=== PATIENT | male | born 1955 | race Caucasian/White ===

== ENCOUNTER 2018-03-28 12:43 | Observation (INO) | payer BC, SELFPAY ==
[2018-03-28 13:26] LABS: Absolute Lymphocytes (CBC) 1.5 K/uL (0.7-4.9); Absolute Monocytes 0.7 K/uL (0.1-1.3); Absolute Neutrophil 4.1 K/uL (1.8-8.0); Basophils % 0.6 % (0-1.3); Hematocrit 43.3 % (39.6-49.0); Lymphocytes % 22.9 % (15.3-44.8); MCH 30.1 pg (27.0-35.0); MCV 87.5 fL (80-100); MPV 9.3 fL (7.6-11.3); Monocytes % 10.2 % (3.3-12.3); RBC Red Blood Cell Count 4.95 M/uL (4.33-5.43)
[2018-03-28 13:30] LABS: Protime INR 0.95
[2018-03-28 13:44] LABS: ALT/SGPT 38 U/L (12-78); AST/SGOT 28 U/L (15-37); Albumin 3.4 g/dL (3.4-5.0); Alkaline Phosphatase 103 U/L (45-117); BUN Blood Urea Nitrogen 17 mg/dL (7-18); Bicarbonate 28 mmol/L (21-32); Bilirubin Direct 0.1 mg/dL (0-0.2); Bilirubin Total 0.5 mg/dL (0.2-1.0); CKMB Creatine Kinase MB < 1.0 ng/mL (0.3-3.6); Creatine Phosphokinase 94 U/L (39-308); Glucose Level 122 mg/dL (74-106); Magnesium 2.2 mg/dL (1.8-2.4); NT PRO-BNP 241 pg/mL (<125); Potassium 4.1 mmol/L (3.5-5.1); Protein, Total 7.1 g/dL (6.4-8.2); Sodium Level 143 mmol/L (136-145); Troponin (Emerg Dept Use Only) < 0.02 ng/mL (0.0-0.045)
--- NOTE | 2018-03-28 13:45 | RAD REPORT ---
EXAM DESCRIPTION: CT - Head Brain Wo Cont - 03/28/2018 1:29 pm CLINICAL HISTORY: Dizziness COMPARISON: None. TECHNIQUE: Computed axial tomography of the head was obtained. IV contrast was not requested. All CT scans are performed using dose optimization technique as appropriate and may include automated exposure control or mA/KV adjustment according to patient size. FINDINGS: An intracranial bleed is not seen . The ventricles are normal in caliber. No extra-axial fluid collection is noted. Fluid within the sinuses/ mastoids is not seen. IMPRESSION: No acute intracranial abnormality is seen. If patient's symptoms persist MRI of the bra in would be recommended.
[2018-03-28] MEDS ORDERED: ASPIRIN 81 MG CHEWABLE TABLET ONE (14:15)
[2018-03-28] MEDS ORDERED: MORPHINE 4 MG/ML SYR ONE (14:16)
--- NOTE | 2018-03-28 14:46 | RAD REPORT ---
EXAM DESCRIPTION: [place] Single View03/28/2018 2:09 pm CLINICAL HISTORY: Chest pain COMPARISON: 2016 FINDINGS: The left base is hazy. The right lung appears clear of acute infiltrate. The heart is nor mal size IMPRESSION: The left base is hazy probably secondary to overlying soft tissue. If the patient has cl inical symptoms to suggest a left lung pneumonia then PA and lateral chest series would be recommende d
[2018-03-28] MEDS ORDERED: ONDANSETRON 4 MG/2 ML VIAL IV PRN (14:50)
--- NOTE | 2018-03-28 14:50 | EDPHYS ---
Physician Documentation [facility] Name: Sarah Prescott Age: 62 yrs Sex: Male : 1955 Arrival Date: 03/28/2018 Time: 12:47 Bed 25 Private MD: Joey Norton ED Physician Santana Vaca HPI: 03/28 13:29 This 62 yrs old Male presents to ER via Wheelchair with complaints of Chest cp Pain, Dizziness. 13:30 The patient or guardian reports chest pain that is located primarily in the substernal cp area. 13:30 Onset: this morning, at 04:00, and improved today. The pain does not radiate. cp Associated signs and symptoms: Pertinent positives: dizziness, numbness of left arm, Pertinent negatives: abdominal pain, cough, headache, lower extremity pain, lower extremity swelling, palpitations, shortness of breath, syncope, vomiting. The chest pain is described as aching. Duration: The patient or guardian reports a single episode, that is still ongoing, but improving. Modifying factors: The symptoms are alleviated by nothing. the symptoms are aggravated by nothing. Severity of pain: in the emergency department the pain has improved mildly. Historical: - Allergies: 12:54 PENICILLINS; aj - Home Meds: 12:54 None [Active]; aj - PMHx: 12:54 None; aj - PSHx: 12:54 cataract; aj - Immunization history:: Adult Immunizations up to date. - Social history:: Smoking status: Patient/guardian denies using tobacco. - Ebola Screening: : Patient negative for fever greater than or equal to 101.5 degrees Fahrenheit, and additional compatible Ebola Virus Disease symptoms Patient denies exposure to infectious person Patient denies travel to an Ebola-affected area in the 21 days before illness onset No symptoms or risks identified at this time. ROS: 13:35 Constitutional: Negative for body aches, chills, fever, poor PO intake. cp 13:35 Eyes: Negative for injury, pain, redness, and discharge. cp 13:35 Neck: Negative for pain with movement, pain at rest, stiffness. 13:35 Cardiovascular: Positive for chest pain, Negative for edema, palpitations. 13:35 Respiratory: Negative for cough, shortness of breath, wheezing. 13:35 Abdomen/GI: Negative for abdominal pain, nausea, vomiting, and diarrhea, black/tarry stool, rectal bleeding. 13:35 Back: Negative for pain at rest, pain with movement, radiated pain. 13:35 : Negative for urinary symptoms. 13:35 MS/extremity: Positive for paresthesias, of the left arm, Negative for injury or acute deformity, pain. 13:35 Skin: Negative for cellulitis, rash. 13:35 Neuro: Positive for dizziness, Negative for altered mental status, headache, syncope, near syncope, visual changes, weakness. 13:35 All other systems are negative. Exam: 13:08 ECG was reviewed by the Attending Physician. cp 13:42 Constitutional: The patient appears in no acute distress, alert, awake, cp non-diaphoretic, non-toxic, well developed, well nourished. 13:42 Head/Face: Normocephalic, atraumatic. Eyes: Pupils equal round and reactive to light, cp extra-ocular motions intact. Lids and lashes normal. Conjunctiva and sclera are non-icteric and not injected. Cornea within normal limits. Periorbital areas with no swelling, redness, or edema. ENT: Nares patent. No nasal discharge, no septal abnormalities noted. Tympanic membranes are normal and external auditory canals are clear. Oropharynx with no redness, swelling, or masses, exudates, or evidence of obstruction, uvula midline. Mucous membranes moist. Neck: Trachea midline, no thyromegaly or masses palpated, and no cervical lymphadenopathy. Supple, full range of motion without nuchal rigidity, or vertebral point tenderness. No Meningismus. Chest/axilla: Normal chest wall appearance and motion. Nontender with no deformity. No lesions are appreciated. 13:42 Cardiovascular: Rate: normal, Rhythm: regular, Pulses: Pulses are 2+ in right radial artery and left radial artery. Heart sounds: murmur, not appreciated, Edema: is not appreciated, JVD: is not appreciated. 13:42 Respiratory: the patient does not display signs of respiratory distress, Respirations: normal, no use of accessory muscles, no retractions, no splinting, no tachypnea, labored breathing, is not present, Breath sounds: are clear throughout, no decreased breath sounds, no stridor, no wheezing. 13:42 Abdomen/GI: Inspection: abdomen appears normal, Bowel sounds: active, all quadrants, Palpation: abdomen is soft and non-tender, in all quadrants. 13:42 Back: pain, is absent, ROM is normal. 13:42 Skin: cellulitis, is not appreciated, no rash present. 13:42 Neuro: Orientation: to person, place \T\ time. Mentation: lucid, able to follow commands, Cerebellar function: Romberg testing is negative, normal finger to nose testing, Motor: moves all fours, strength is normal, Sensation: no obvious gross deficits. Vital Signs: 12:54 BP 141 / 89; Pulse 68; Resp 19; Temp 97.4; Pulse Ox 97% on R/A; Weight 83.91 kg; Height aj 6 ft. 0 in. (182.88 cm); 13:01 BP 148 / 96; Pulse 73; Resp 16; Temp 98.5; Pulse Ox 99% on R/A; Pain 7/10; ch 14:27 BP 152 / 91; Pulse 76; Resp 15; Pulse Ox 99% on R/A; Pain 0/10; ch 16:01 BP 150 / 88; Pulse 72; Resp 18; Temp 98.5; Pulse Ox 99% on R/A; Pain 0/10; ch 12:54 Body Mass Index 25.09 (83.91 kg, 182.88 cm) NIH Stroke Scale Scores: 13:01 NIHSS Score: 0 ch MDM: 13:00 Differential diagnosis: abnormal EKG, acute myocardial infarction, acute pericarditis, cp chest wall pain, cholecystitis, Cholelithiasis costochondritis, pancreatitis, pneumonia, pneumothorax, pulmonary embolus, stable angina, thoracic aortic disection, unstable angina, CVA. 13:09 Patient medically screened. cp 14:48 The patient was given aspirin in the Emergency Department. cp 14:48 Data reviewed: vital signs, nurses notes, lab test result(s), EKG, radiologic studies, cp plain films. Test interpretation: by ED physician or midlevel provider: ECG, plain radiologic studies. Response to treatment: the patient's symptoms have resolved after treatment, the patient's pain is gone, and as a result, I will admit patient. Physician consultation: Khadar Gallo DO was contacted at 14:45, regarding admission, to the telemetry unit. patient's condition, and will see patient in ED, shortly. 03/28 12:59 Order name: Basic Metabolic Panel; Complete Time: 13:59 03/28 12:59 Order name: CBC with Diff; Complete Time: 13:59 03/28 12:59 Order name: Ckmb; Complete Time: 13:59 03/28 12:59 Order name: CPK; Complete Time: 13:59 03/28 12:59 Order name: LFT's; Complete Time: 13:59 03/28 12:59 Order name: Magnesium; Complete Time: 13:59 03/28 12:59 Order name: NT PRO-BNP; Complete Time: 13:59 03/28 12:59 Order name: PT-INR; Complete Time: 13:59 03/28 12:59 Order name: Ptt, Activated; Complete Time: 13:59 03/28 12:59 Order name: Troponin (emerg Dept Use Only); Complete Time: 13:59 03/28 12:59 Order name: XRAY Chest (1 view) 03/28 15:01 Order name: CKMB Creatine Kinase MB [facility] 03/28 15:01 Order name: Creatine Phosphokinase [facility] 03/28 15:01 Order name: Troponin I [facility] 03/28 12:59 Order name: EKG; Complete Time: 13:01 03/28 12:59 Order name: Cardiac monitoring; Complete Time: 15:28 03/28 12:59 Order name: EKG - Nurse/Tech; Complete Time: 15:28 03/28 12:59 Order name: IV Saline Lock; Complete Time: 15:28 03/28 12:59 Order name: Labs collected and sent; Complete Time: 15:28 03/28 12:59 Order name: O2 Per Protocol; Complete Time: 15:28 03/28 12:59 Order name: O2 Sat Monitoring; Complete Time: 15:28 03/28 12:59 Order name: CT Head Brain wo Cont; Complete Time: 13:59 03/28 15:01 Order name: CONS Physician Consult [facility] 03/28 15:01 Order name: Heart Healthy [facility] 03/28 15:01 Order name: Echo with Doppler [facility] 03/28 15:01 Order name: Stroke Protocol [facility] 03/28 15:01 Order name: Carotid Artery Bilateral EDTX EC:08 Rate is 61 beats/min. Rhythm is regular. PA interval is normal. QRS interval is normal. cp QT interval is normal. Interpreted by me. Reviewed by me. Administered Medications: 14:08 Drug: Aspirin Chewable Tablet 324 mg Route: PO; 15:28 Follow up: Response: No adverse reaction; Marked relief of symptoms ch 14:51 CANCELLED (Physician Discretion): Metoprolol 25 mg PO once cp 16:47 Not Given (Patient Refused): morphine 2 mg IVP once ch Disposition: 18:34 Co-signature as Attending Physician, Santana Vaca MD I agree with the assessment and kdr plan of care. Disposition: 03/28/18 14:50 Hospitalization ordered by Khadar Gallo for Observation. Preliminary diagnosis is Chest pain, unspecified. - Bed requested for Telemetry/MedSurg (observation). - Status is Observation. ch - Condition is Stable. - Problem is new. - Symptoms have improved. UTI on Admission? No NIH Stroke Scale - NIH Stroke Score Date: 03/28/2018 Time: 13:01 Total Score = 0 1a. Level of Consciousness (LOC) - 0(Alert) 1b. Level of Consciousness (LOC) (Year \T\ Age) - 0(Both) 1c. LOC Commands (Open \T\ Closes Eyes/Resident Doctor) - 0(Both) 2. Best Gaze (Lateral Gaze Paresis) - 0(Normal) 3. Visual Field Loss - 0(No visual loss) 4. Facial Palsy - 0(Normal) 5a. Left Arm: Motor (10-second hold) - 0(No drift) 5b. Right Arm: Motor (10-second hold) - 0(No drift) 6a. Left Leg: Motor (5-second hold - always test supine) - 0(No drift) 6b. Right Leg: Motor (5-second hold - always test supine) - 0(No drift) 7. Limb Ataxia (finger/nose \T\ heel/minor - test with eyes open) - 0(Absent) 8. Sensory Loss (pinprick arms/legs/face) - 0(Normal) 9. Best Language: Aphasia (description/naming/reading) - 0(No aphasia) 10. Dysarthria (speech clarity - read or repeat words) - 0(Normal) 11. Extinction and Inattention (visual/tactile/auditory/spatial/personal) - 0(No abnormality) Initials: Signatures: Dispatcher [employer] EDMS [place] Tinoco bd Cristina Juarez, RN Alyx Whitmore ch, RN RN aj Rittger, Kevin, MD MD kdr Page, Corey, MARION PA cp Corrections: (The following items were deleted from the chart) 14:51 14:40 Metoprolol 25 mg PO once ordered. cp cp 15:45 14:50 Hospitalization Ordered by Khadar Gallo DO for Observation. Preliminary bd diagnosis is Chest pain, unspecified. Bed requested for Telemetry/MedSurg (observation). Status is Observation. Condition is Stable. Problem is new. Symptoms have improved. UTI on Admission? No. cp 16:48 15:45 03/28/2018 14:50 Hospitalization Ordered by Khadar Gallo DO for Observation. Preliminary diagnosis is Chest pain, unspecified. Bed requested for Telemetry/MedSurg (observation). Status is Observation. Condition is Stable. Problem is new. Symptoms have improved. UTI on Admission? No. bd
--- NOTE | 2018-03-28 14:50 | ER ---
Nurse's Notes [facility] Name: Sarah Prescott Age: 62 yrs Sex: Male : 1955 Arrival Date: 03/28/2018 Time: 12:47 Bed 25 Private MD: Joey Norton Diagnosis: Chest pain, unspecified Presentation: 03/28 12:53 Presenting complaint: Patient states: Dizziness and sternal chest pressure that started aj at 0400 this AM. Denies N/V or diaphoresis. Transition of care: patient was not received from another setting of care. Onset of symptoms was March 28, 2018. Risk Assessment: Do you want to hurt yourself or someone else? Patient reports no desire to harm self or others. Initial Sepsis Screen: Does the patient meet any 2 criteria? No. Patient's initial sepsis screen is negative. Does the patient have a suspected source of infection? No. Patient's initial sepsis screen is negative. Care prior to arrival: None. 12:53 Method Of Arrival: Wheelchair aj 12:53 Acuity: BECK 3 aj Triage Assessment: 12:54 General: Appears in no apparent distress. comfortable, Behavior is calm, cooperative, aj appropriate for age. Pain: Complains of pain in chest. Neuro: Level of Consciousness is awake, alert, obeys commands, Oriented to person, place, time, situation, Appropriate for age. Cardiovascular: Reports chest pain. Cardiovascular: Capillary refill < 3 seconds in bilateral fingers Patient's skin is warm and dry. Respiratory: Airway is patent Respiratory effort is even, unlabored, Respiratory pattern is regular, symmetrical. Derm: Skin is intact, is healthy with good turgor, Skin is pink, warm \T\ dry. normal. Historical: - Allergies: 12:54 PENICILLINS; aj - Home Meds: 12:54 None [Active]; aj - PMHx: 12:54 None; aj - PSHx: 12:54 cataract; aj - Immunization history:: Adult Immunizations up to date. - Social history:: Smoking status: Patient/guardian denies using tobacco. - Ebola Screening: : Patient negative for fever greater than or equal to 101.5 degrees Fahrenheit, and additional compatible Ebola Virus Disease symptoms Patient denies exposure to infectious person Patient denies travel to an Ebola-affected area in the 21 days before illness onset No symptoms or risks identified at this time. Screenin:01 Abuse screen: Denies threats or abuse. Denies injuries from another. Nutritional screening: No deficits noted. Tuberculosis screening: No symptoms or risk factors identified. Fall Risk None identified. Assessment: 13:00 General: Appears in no apparent distress. comfortable, Behavior is calm, cooperative, ch appropriate for age. 13:01 Pain: Complains of pain in chest Pain radiates to left arm Pain began gradually. Neuro: Level of Consciousness is awake, alert, obeys commands, Oriented to person, place, time, situation, Hotbed Lever Operator are equal bilaterally. Cardiovascular: Reports chest pain, numbness in L arm. Respiratory: Airway is patent Respiratory effort is even, unlabored, Breath sounds are coarse bilaterally. 14:27 Reassessment: Patient appears in no apparent distress at this time. Patient and/or family updated on plan of care and expected duration. Pain level reassessed. Patient is alert, oriented x 3, equal unlabored respirations, skin warm/dry/pink. Patient denies pain at this time. Patient states feeling better. Patient states symptoms have improved. 15:29 Reassessment: Patient appears in no apparent distress at this time. No changes from previously documented assessment. Patient and/or family updated on plan of care and expected duration. Pain level reassessed. Patient is alert, oriented x 3, equal unlabored respirations, skin warm/dry/pink. Patient states feeling better. Patient states symptoms have improved. 15:34 Reassessment: Patient appears in no apparent distress at this time. awaiting room assignment. 16:01 Reassessment: Patient appears in no apparent distress at this time. Patient and/or family updated on plan of care and expected duration. Pain level reassessed. attempting to call report now. placed on hold. 16:24 Reassessment: Patient appears in no apparent distress at this time. attempting to call report again. pt is in imaging department now. 16:45 Reassessment: Patient appears in no apparent distress at this time. report called to second floor. MRI notified to take pt to room 228 upon completion of MRI. Vital Signs: 12:54 BP 141 / 89; Pulse 68; Resp 19; Temp 97.4; Pulse Ox 97% on R/A; Weight 83.91 kg; Height aj 6 ft. 0 in. (182.88 cm); 13:01 BP 148 / 96; Pulse 73; Resp 16; Temp 98.5; Pulse Ox 99% on R/A; Pain 7/10; ch 14:27 BP 152 / 91; Pulse 76; Resp 15; Pulse Ox 99% on R/A; Pain 0/10; ch 16:01 BP 150 / 88; Pulse 72; Resp 18; Temp 98.5; Pulse Ox 99% on R/A; Pain 0/10; ch 12:54 Body Mass Index 25.09 (83.91 kg, 182.88 cm) Vitals: 13:01 Cardiac Rhythm Assessment Regular Sinus rhythm. NIH Stroke Scale Scores: 13:01 NIHSS Score: 0 ED Course: 12:47 Patient arrived in ED. mr 12:47 Joey Norton DO is Private Physician. mr 12:54 Triage completed. aj 12:54 Arm band placed on right wrist. Patient placed in an exam room. EKG completed in triage. Results shown to MD. 12:58 Cristina Juarez, ALYSE is Primary Nurse. 12:59 Initial lab(s) drawn, by tn, EKG done, by word processor technician. Inserted saline lock: 20 gauge in jb1 left antecubital area, using aseptic technique. Blood collected. 13:01 No apparent distress. Resting quietly. ch 13:01 Patient has correct armband on for positive identification. Placed in gown. Cardiac ch monitor on. Pulse ox on. NIBP on. 13:01 No provider procedures requiring assistance completed. Patient maintains SpO2 ch saturation greater than 95% on room air. 13:09 Ronnie Conrad PA is PHCP. cp 13:09 Santana Vaca MD is Attending Physician. cp 13:17 EKG done, by word processor technician. reviewed by Ronnie SCHULTZ. dt2 13:29 CT Head Brain wo Cont In Process Unspecified. EDMS 14:05 X-ray completed. Portable x-ray completed in exam room. Patient tolerated procedure jb2 well. 14:10 XRAY Chest (1 view) In Process Unspecified. EDMS 14:27 Warm blanket given. ch 14:49 Khadar Gallo DO is Hospitalizing Provider. cp 16:02 Patient moved to MRI via wheelchair. em2 16:20 Ultrasound completed. hr 16:47 Patient admitted, IV remains in place. Administered Medications: 14:08 Drug: Aspirin Chewable Tablet 324 mg Route: PO; 15:28 Follow up: Response: No adverse reaction; Marked relief of symptoms 14:51 CANCELLED (Physician Discretion): Metoprolol 25 mg PO once 16:47 Not Given (Patient Refused): morphine 2 mg IVP once Outcome: 14:50 Decision to Hospitalize by Provider. cp 16:36 Admitted to Med/surg accompanied by tech, via wheelchair, room 228, with chart, Report called to [facility] 16:47 Condition: stable ch 16:48 Patient left the ED. NIH Stroke Scale - NIH Stroke Score Date: 03/28/2018 Time: 13:01 Total Score = 0 1a. Level of Consciousness (LOC) - 0(Alert) 1b. Level of Consciousness (LOC) (Year \T\ Age) - 0(Both) 1c. LOC Commands (Open \T\ Closes Eyes/Master Carpenter) - 0(Both) 2. Best Gaze (Lateral Gaze Paresis) - 0(Normal) 3. Visual Field Loss - 0(No visual loss) 4. Facial Palsy - 0(Normal) 5a. Left Arm: Motor (10-second hold) - 0(No drift) 5b. Right Arm: Motor (10-second hold) - 0(No drift) 6a. Left Leg: Motor (5-second hold - always test supine) - 0(No drift) 6b. Right Leg: Motor (5-second hold - always test supine) - 0(No drift) 7. Limb Ataxia (finger/nose \T\ heel/minor - test with eyes open) - 0(Absent) 8. Sensory Loss (pinprick arms/legs/face) - 0(Normal) 9. Best Language: Aphasia (description/naming/reading) - 0(No aphasia) 10. Dysarthria (speech clarity - read or repeat words) - 0(Normal) 11. Extinction and Inattention (visual/tactile/auditory/spatial/personal) - 0(No abnormality) Initials: Signatures: Dispatcher [employer] EDMS Jerry Snowden1 Cristina Juarez RN RN ch Myers, Amanda, RN RN aj Rivera, Maria mr Beto Whaley jb2 Flora Hastings Enrique em2 Ronnie Conrad PA PA cp Teague, Danielle dt2 Corrections: (The following items were deleted from the chart) 14:14 14:07 morphine 2 mg IVP in left antecubital ch ch
--- NOTE | 2018-03-28 16:05 | P.HP ---
Certification for Inpatient Patient admitted to: Observation With expected LOS: <2 Midnights Patient will require the following post-hospital care: None Practitioner: I am a practitioner with admitting privileges, knowledge of patient current condition, hospital course, and medical plan of care. Services: Services provided to patient in accordance with Admission requirements found in Title 42 Section 412.3 of the Code of Federal Regulations Patient History Date of Service: 03/28/18 Primary Care Provider: Dr. Norton Reason for admission: Chest pain History of Present Illness: 62-year-old male presented emergency room with chest pain. Patient reported chest pain that started today. Chest pain was mainly to the substernal region. It felt like a ton of bricks. He rated the pain about a 4/ 10. He did not have any nausea vomiting or palpitations with this. He did report some dizziness. He also reported some numbness to the left arm. Patient denied any abdominal pain. Patient came to the ER for further evaluation. In the ER blood pressures were elevated. CBC unremarkable. Sodium 143, potassium 4.1, GFR of 85. Troponin less than 0.02. CT of the head unremarkable. Chest x-ray unremarkable. Due to the nature is findings the patient was admitted for further evaluation. When I saw the patient ER, he is without any chest pain. He reports being seen by Cardiology about 2 years ago. He had a exercise stress test and Holter done at that time which was negative. Patient does not take any blood pressure medication. Only to medication that he takes his Nexium. There is a family history of CVAs with both his mother and brother having 1. Allergies Penicillins Allergy (Verified 03/28/18 15:08) UNK - Past Medical/Surgical History Diabetic: No -: GERD -: Cataracts surgery Psychosocial/ Personal History: Patient is for over 40 years. He has 3 children. 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 - Family History Mother -: Stroke Brother -: Stroke - Social History Smoking Status: Former smoker Alcohol use: No CD- Drugs: No Caffeine use: Yes Place of Residence: Home Review of Systems General: As per HPI Eyes: Unremarkable ENT: Unremarkable Respiratory: Unremarkable Cardiovascular: Chest Pain, Light Headedness, As per HPI Gastrointestinal: Unremarkable Genitourinary: Unremarkable Musculoskeletal: Unremarkable Integumentary: Unremarkable Neurological: As per HPI Lymphatics: Unremarkable Physical Examination - Physical Exam General: Alert, In no apparent distress, Oriented x3, Cooperative HEENT: Atraumatic, Normocephalic, PERRLA, Mucous membr. moist/pink Neck: Supple, No Thyromegaly Respiratory: Clear to auscultation bilaterally, Normal air movement Cardiovascular: Normal pulses, Regular rate/rhythm Gastrointestinal: Normal bowel sounds, Soft and benign, Non-distended, No tenderness, No masses, No rebound, No guarding Musculoskeletal: No erythema, No tenderness, No warmth Integumentary: No tenderness/swelling, No erythema, No warmth, No cyanosis Neurological: Normal speech, Normal strength at 5/5 x4 extr, Normal tone, Normal affect - Studies Laboratory Data (last 24 hrs) 03/28/18 13:10: PT 11.2, INR 0.95, APTT 29.6 03/28/18 13:10: WBC 6.6, Hgb 14.9, Hct 43.3, Plt Count 208 03/28/18 13:10: Sodium 143, Potassium 4.1, BUN 17, Creatinine 0.90, Glucose 122 H, Magnesium 2.2, Total Bilirubin 0.5, AST 28, ALT 38, Alkaline Phosphatase 103 Assessment and Plan - Plan Impression: Chest pain Paresthesia to the left upper extremity Hypertension GERD Plan: Patient will be admitted for observation and further evaluation and his chest pain. Will continue on telemetry. Will monitor cardiac enzymes. Will order echocardiogram to further assess. Cardiology consulted to further evaluate. Patient with history of exercise stress test and Holter monitor 2 years ago which was unremarkable. Patient with elevated blood pressure. Patient not taking any medications at this time. Will start lisinopril. Patient also with paresthesia to the left upper extremity associated with chest pain. Due to his family history of CVA will order stroke protocol MRI and carotid Doppler to further evaluate. Patient be started on aspirin and statin medication. Anticipate possible cardiac stress test to further evaluate. Likely discharge tomorrow if tests unremarkable. - Advance Directives Does patient have a Living Will: No Does patient have a Durable POA for Healthcare: No - Code Status/Comfort Care Code Status Assessed: Yes Time Spent Managing Pts Care (In Minutes): 55
[2018-03-28] MEDS ORDERED: ENOXAPARIN 40 MG/0.4 ML SQ SCH (17:00)
--- NOTE | 2018-03-28 17:49 | RAD REPORT ---
EXAM DESCRIPTION: USCarotid Artery Bilateral03/28/2018 4:14 pm CLINICAL HISTORY: Numbness COMPARISON: None FINDINGS: The velocity of the right internal carotid artery equals 60 cm/sec. The right ICA/CCA rati o 1.5 The velocity of the left internal carotid artery equals 98 cm/sec. The left ICA/CCA ratio 1.6 Mild plaque is present within the carotid arteries. The vertebral arteries demonstrate antegrade flow IMPRESSION: Mild plaque within the carotid arteries without evidence of a hemodynamically significan t stenosis
[2018-03-28] MEDS ORDERED: HYDRALAZINE HCL 20 MG/ML VIAL IV PRN (18:01)
[2018-03-28] MEDS: NA CHLORIDE 0.9% 1,000 ML IV SCH (18:06)
[2018-03-28] MEDS: LISINOPRIL 10 MG TAB PO SCH (18:06)
--- NOTE | 2018-03-28 18:07 | RAD REPORT ---
EXAM DESCRIPTION: MRI - MRA Neck W/Wo Cont - 03/28/2018 5:56 pm CLINICAL HISTORY: Left arm numbness COMPARISON: None. TECHNIQUE: Magnetic resonance angiogram of the neck was performed. 20 cc MultiHance administered int ravenously. .Source images were reviewed and reconstructed at 360 degrees rotation. FINDINGS: The common carotid, internal carotid and external carotid arteries do not demonstrate a si gnificant stenosis. Minimal plaque is present. An aneurysm is not seen. The right vertebral artery is more dominant than the left without visualization of an abnormality. Do lichoectasia of the vertebrobasilar artery is noted IMPRESSION: Dolichoectasia of the vertebrobasilar artery is noted Minimal plaque within the carotid arteries
--- NOTE | 2018-03-28 18:10 | RAD REPORT ---
EXAM DESCRIPTION: MRI - MRA Head Wo Cont - 03/28/2018 5:26 pm COMPARISON: None. TECHNIQUE: Magnetic resonance angiogram of the head was performed. Source images were reviewed and reconstructed at 360 degrees rotation. FINDINGS: The visualized anterior cerebral, middle cerebral, posterior cerebral, basilar and distal internal carotid arteries do not demonstrate a significant stenosis. The a 1 segment of the right ant erior cerebral artery is hypoplastic. An aneurysm is not seen Dolichoectasia of the vertebrobasilar artery is noted IMPRESSION: Dolichoectasia of the vertebrobasilar artery is noted Otherwise, unremarkable MRA head
--- NOTE | 2018-03-28 18:16 | RAD REPORT ---
EXAM DESCRIPTION: MRI - Brain W/Wo Cont - 03/28/2018 5:56 pm CLINICAL HISTORY: Left arm numbness COMPARISON: None TECHNIQUE: Axial, sagittal, and coronal magnetic images of the brain were obtained. 20 cc Magnevist administered intravenously. FINDINGS: A 7 millimeter area of abnormal signal within the left frontal lobe may represent an area of ischemia or small old infarct. Mild periventricular signal likely represents mild ischemic changes secondary to mild small vessel disease. . Diffusion-weighted/ADC mapping does not reveal evidence of acute infarction. The ventricles are normal caliber. No abnormal enhancement within the brain is seen. An extra-axial fluid collection is not noted The sinuses and mastoids are clear. IMPRESSION: No acute abnormality is seen
[2018-03-28 20:21] LABS: Urine Appearance CLOUDY; Urine Bilirubin NEGATIVE (NEG); Urine Blood NEGATIVE (NEG); Urine Color YELLOW; Urine Glucose NEGATIVE (NEG); Urine Protein NEGATIVE (NEG); Urine Specific Gravity 1.025 (1.005-1.030); Urine pH 6.5 (5.0-7.0)
[2018-03-28] MEDS ORDERED: ATORVASTATIN 40 MG TAB PO SCH (21:00)
[2018-03-28 21:28] LABS: Urine Microscopic Reflex ORDER UMIC
[2018-03-28] MEDS: FAMOTIDINE 20 MG TAB PO SCH (21:53)
[2018-03-28 22:20] LABS: Urine Amorphous Sediment 3+ /HPF (NONE SEEN); Urine Bacteria <20 /HPF (NONE SEEN); Urine Culture Reflex Order NOT NEEDED; Urine RBC <5 /HPF (NONE SEEN)
[2018-03-28 22:38] LABS: CKMB Creatine Kinase MB < 1.0 ng/mL (0.3-3.6); Creatine Phosphokinase 69 U/L (39-308); Troponin I < 0.02 ng/mL (0.0-0.045)
[2018-03-29] MEDS ORDERED: HYDRALAZINE HCL 20 MG/ML VIAL IV PRN (03:48)
[2018-03-29] MEDS: NA CHLORIDE 0.9% 1,000 ML IV SCH (03:53)
[2018-03-29] MEDS: ACETAMINOPHEN 500 MG TAB PO PRN ×2 (03:57→09:31)
[2018-03-29 05:38] LABS: Absolute Lymphocytes (CBC) 1.5 K/uL (0.7-4.9); Absolute Monocytes 0.6 K/uL (0.1-1.3); Absolute Neutrophil 3.9 K/uL (1.8-8.0); Basophils % 0.6 % (0-1.3); Eosinophils % 4.5 % (0-4.4); Hematocrit 40.7 % (39.6-49.0); MCH 30.2 pg (27.0-35.0); MCV 86.7 fL (80-100); MPV 9.1 fL (7.6-11.3); Monocytes % 9.6 % (3.3-12.3)
[2018-03-29 06:38] LABS: CKMB Creatine Kinase MB < 1.0 ng/mL (0.3-3.6); Creatine Phosphokinase 60 U/L (39-308); Troponin I < 0.02 ng/mL (0.0-0.045)
[2018-03-29 06:43] LABS: Magnesium 2.1 mg/dL (1.8-2.4); Potassium 4.1 mmol/L (3.5-5.1); Thyroid Stimulating Hormone 2.78 uIU/mL (0.360-3.740)
--- NOTE | 2018-03-29 07:37 | EKG ---
Test Date: 2018-03-28 Test Time: 13:00:02 Collet Gluer: LAZARUS MEASUREMENT RESULTS: Intervals: Rate: 61 AR: 162 QRSD: 90 QT: 448 QTc: 450 Roggen: P: 38 AR: 162 QRS: -22 T: 23 INTERPRETIVE STATEMENTS: Normal sinus rhythm Possible Anterior infarct, age undetermined Abnormal ECG Compared to ECG 09/21/1994 21:39:00 No significant changes Electronically Signed On 03-29-18 07:34:24 CDT by Constantin Isaac
--- NOTE | 2018-03-29 08:04 | P.DS ---
Admission Date: 03/28/18 Discharge Date: 03/29/18 Primary Care Provider: Dr. Norton/Dr. Banegas Disposition: ROUTINE DISCHARGE Discharge Condition: GOOD Reason for Admission: Chest pain Consultations: Cardiology-Dr. Isaac Procedures: ECHO: Carotid Doppler: COMPARISON: None FINDINGS: The velocity of the right internal carotid artery equals 60 cm/sec. The right ICA/CCA ratio 1.5 The velocity of the left internal carotid artery equals 98 cm/sec. The left ICA/ CCA ratio 1.6 Mild plaque is present within the carotid arteries. The vertebral arteries demonstrate antegrade flow IMPRESSION: Mild plaque within the carotid arteries without evidence of a hemodynamically significant stenosis MRI Brain: COMPARISON: None TECHNIQUE: Axial, sagittal, and coronal magnetic images of the brain were obtained. 20 cc Magnevist administered intravenously. FINDINGS: A 7 millimeter area of abnormal signal within the left frontal lobe may represent an area of ischemia or small old infarct. Mild periventricular signal likely represents mild ischemic changes secondary to mild small vessel disease. . Diffusion-weighted/ADC mapping does not reveal evidence of acute infarction. The ventricles are normal caliber. No abnormal enhancement within the brain is seen. An extra-axial fluid collection is not noted The sinuses and mastoids are clear. IMPRESSION: No acute abnormality is seen MRA Brain: COMPARISON: None. TECHNIQUE: Magnetic resonance angiogram of the head was performed. Source images were reviewed and reconstructed at 360 degrees rotation. FINDINGS: The visualized anterior cerebral, middle cerebral, posterior cerebral , basilar and distal internal carotid arteries do not demonstrate a significant stenosis. The a 1 segment of the right anterior cerebral artery is hypoplastic. An aneurysm is not seen Dolichoectasia of the vertebrobasilar artery is noted MRA Neck: IMPRESSION: Dolichoectasia of the vertebrobasilar artery is noted Otherwise, unremarkable MRA head FINDINGS: The common carotid, internal carotid and external carotid arteries do not demonstrate a significant stenosis. Minimal plaque is present. An aneurysm is not seen. The right vertebral artery is more dominant than the left without visualization of an abnormality. 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 Patient reported chest pain that started today. Chest pain was mainly to the substernal region. It felt like a ton of bricks. He rated the pain about a 4/ 10. He did not have any nausea vomiting or palpitations with this. He did report some dizziness. He also reported some numbness to the left arm. Patient denied any abdominal pain. Patient also reports chronic headaches. Patient came to the ER for further evaluation. In the ER blood pressures were elevated. CBC unremarkable. Sodium 143, potassium 4.1, GFR of 85. Troponin less than 0.02. CT of the head unremarkable. Chest x-ray unremarkable. Due to the nature is findings the patient was admitted for further evaluation. When I saw the patient ER, he is without any chest pain. He reports being seen by Cardiology about 2 years ago. He had a exercise stress test and Holter done at that time which was negative. Patient does not take any blood pressure medication. Only to medication that he takes his Nexium. There is a family history of CVAs with both his mother and brother having 1. Hospital Course: Patient presented with chest pain. Patient seen and evaluated by Cardiology. Cardiac enzymes unremarkable. No telemetry changes were noted. Echocardiogram done. Cardiology recommends for outpatient stress test to be done next week. Patient will follow up with cardiology at that time. Recommendation at discharge to continue with aspirin 81 mg daily. Patient with elevated blood pressure. Patient has hypertension. Medications started during his stay. Blood pressures improved with medication. At discharge he will continue with lisinopril 10 mg 1 pill once daily. Recommendation is to maintain blood pressures less 150/80. Further adjustment can be done by his PCP. If blood pressures remain below 100 systolic he is to hold his blood pressure medication. Patient reports chronic headaches. MRI evaluation done. Mild small-vessel disease noted. Possible prior CVA noted. No CVA at this time noted. MRI/MRA shows mild plaque to the carotid stenosis. Vertebrobasilar dolichoectasia was also all noted. This was addressed with the patient in detail. This may be the cause of his chronic headaches along with his hypertension. Recommendation is to continue with aspirin 81 mg daily. Patient will also continue with hypertension and hyperlipidemia medication. Recommendation is for the patient follow up with neurology to further monitor and address. CVA prevention will need to be continued. Education on Dolichoectasia education will be provided. Patient has hyperlipidemia. LDL elevated at 166. Due to his current findings, recommendation is to continue with Lipitor 40 mg daily. Patient has GERD. Patient may continue with Nexium once daily. Recommendation is for the patient to follow up with GI as an outpatient if this persists. Vital Signs/Physical Exam: Temp Pulse Resp BP Pulse Ox 98.4 F 63 18 112/68 95 03/29/18 04:00 03/29/18 04:00 03/29/18 04:00 03/29/18 04:00 03/29/18 04:00 General: Alert, In no apparent distress, Oriented x3, Cooperative HEENT: Atraumatic, Normocephalic Neck: Supple Respiratory: Clear to auscultation bilaterally, Normal air movement Cardiovascular: Normal pulses, Regular rate/rhythm Gastrointestinal: Normal bowel sounds, Soft and benign, Non-distended, No tenderness, No masses, No rebound, No guarding Musculoskeletal: No erythema, No tenderness, No warmth Integumentary: No tenderness/swelling, No erythema, No warmth, No cyanosis Neurological: Normal speech, Normal strength at 5/5 x4 extr, Normal tone, Normal affect Lymphatics: No axilla or inguinal lymphadenopathy Laboratory Data at Discharge: WBC 6.4 K/uL (4.3-10.9) 03/29/18 05:22 Hgb 14.2 g/dL (13.6-17.9) 03/29/18 05:22 Hct 40.7 % (39.6-49.0) 03/29/18 05:22 Plt Count 202 K/uL (152-406) 03/29/18 05:22 PT 11.2 SECONDS (9.5-12.5) 03/28/18 13:10 INR 0.95 03/28/18 13:10 APTT 29.6 SECONDS (24.3-36.9) 03/28/18 13:10 Sodium 142 mmol/L (136-145) 03/29/18 06:05 Potassium 4.1 mmol/L (3.5-5.1) 03/29/18 06:05 BUN 14 mg/dL (7-18) 03/29/18 06:05 Creatinine 0.90 mg/dL (0.55-1.3) 03/29/18 06:05 Glucose 97 mg/dL (74-106) 03/29/18 06:05 Magnesium 2.1 mg/dL (1.8-2.4) 03/29/18 06:05 Total Bilirubin 0.5 mg/dL (0.2-1.0) 03/28/18 13:10 AST 28 U/L (15-37) 03/28/18 13:10 ALT 38 U/L (12-78) 03/28/18 13:10 Alkaline Phosphatase 103 U/L (45-117) 03/28/18 13:10 Troponin I < 0.02 ng/mL (0.0-0.045) 03/29/18 06:05 Triglycerides 166 mg/dL (<150) H 03/29/18 06:05 Cholesterol 224 mg/dL (<200) H 03/29/18 06:05 HDL Cholesterol 25 mg/dL (40-60) L 03/29/18 06:05 Cholesterol/HDL Ratio 8.96 03/29/18 06:05 Home Medications: Esomeprazole Mag Trihydrate [Nexium] 20 mg PO BEDTIME 03/28/18 Melatonin 5 mg PO BEDTIME 03/28/18 Aspirin [Aspirin EC 81 MG] 81 mg PO DAILY #90 tablet. 03/29/18 Atorvastatin Calcium [Lipitor] 40 mg PO BEDTIME #30 tab 03/29/18 Lisinopril [Prinivil*] 10 mg PO DAILY #30 tab 03/29/18 New Medications: Aspirin [Aspirin EC 81 MG] 81 mg PO DAILY #90 tablet. Atorvastatin Calcium [Lipitor] 40 mg PO BEDTIME #30 tab Lisinopril [Prinivil*] 10 mg PO DAILY #30 tab Patient Discharge Instructions: 1. Patient will need to follow up his PCP in 1 week to follow up this hospitalization. 2. Patient presented with chest pain. Patient seen and evaluated by Cardiology. Cardiac enzymes unremarkable. No telemetry changes were noted. Echocardiogram done. Cardiology recommends for outpatient stress test to be done next week. Patient will follow up with cardiology at that time. Recommendation at discharge to continue with aspirin 81 mg daily. 3. Patient with elevated blood pressure. Patient has hypertension. Medications started during his stay. Blood pressures improved with medication. At discharge he will continue with lisinopril 10 mg 1 pill once daily. Recommendation is to maintain blood pressures less 150/80. Further adjustment can be done by his PCP. If blood pressures remain below 100 systolic he is to hold his blood pressure medication. 4. Patient reports chronic headaches. MRI evaluation done. Mild small-vessel disease noted. Possible prior CVA noted. No acute CVA at this time noted. MRI/MRA shows mild plaque to the carotid stenosis. Vertebrobasilar dolichoectasia was also noted. This was addressed with the patient in detail. This may be the cause of his chronic headaches along with his hypertension. Recommendation is to continue with aspirin 81 mg daily. Patient will also continue with hypertension and hyperlipidemia medication. Recommendation is for the patient follow up with neurology to further monitor and address. CVA prevention will need to be continued. Education on Dolichoectasia education will be provided. 5. Patient has hyperlipidemia. LDL elevated at 166. Due to his current findings, recommendation is to continue with Lipitor 40 mg daily. 6. Patient has GERD. Patient may continue with Nexium once daily. Recommendation is for the patient to follow up with GI as an outpatient if this persists. Diet: AHA Activity: Ad alpa Time spent managing pt's care (in minutes): 55
[2018-03-29] MEDS ORDERED: ASPIRIN EC 81 MG TAB PO SCH (09:00)
[2018-03-29] MEDS: LISINOPRIL 10 MG TAB PO SCH (09:30)
[2018-03-29] MEDS: FAMOTIDINE 20 MG TAB PO SCH (09:30)
--- NOTE | 2018-03-29 12:10 | ECHO ---
HEIGHT: 6 ft 0 in WEIGHT: 185 lb 0 oz DATE OF STUDY: 03/29/[address]: Khadar Gallo DO 2-DIMENSIONAL: YES M.MODE: YES DOPPLER: YES COLOR FLOW: YES TDS: PORTABLE: DEFINITY: BUBBLE STUDY: DIAGNOSIS: CHEST PAIN, AND HYPERTENSION. CARDIAC HISTORY: CATHERIZATION: NO SURGERY: NO PROSTHETIC VALVE: NO PACEMAKER: NO MEASUREMENTS (cm) DIASTOLIC (NORMALS) SYSTOLIC (NORMALS) IVSd 1.0 (0.6-1.2) LA Diam 3.4 (1.9-4.0) LVEF 69% LVIDd 4.0 (3.5-5.7) LVIDs 2.5 (2.0-3.5) %FS 38% LVPWd 1.1 (0.6-1.2) Ao Diam 3.6 (2.0-3.7) 2 DIMENSIONAL ASSESSMENT: RIGHT ATRIUM: NORMAL LEFT ATRIUM: NORMAL RIGHT VENTRICLE: NORMAL LEFT VENTRICLE: NORMAL TRICUSPID VALVE: NORMAL MITRAL VALVE: NORMAL PULMONIC VALVE: NORMAL AORTIC VALVE: NORMAL PERICARDIAL EFFUSION: NONE AORTIC ROOT: NORMAL LEFT VENTRICULAR WALL MOTION: NORMAL DOPPLER/COLOR FLOW: NORMAL COMMENTS: NORMAL ECHOCARDIOGRAM WITH DOPPLER. NO WALL MOTION ABNORMALITY. NO EFFUSION. TECHNOLOGIST: FERDINAND HAMLIN
--- NOTE | 2018-03-30 09:50 | CON ---
Date of Consultation: 03/29/2018 Reason For Consultation: Chest pain and hypertension. History Of Present Illness: Mr. Prescott is a 62-year-old white male, has not really had any past medi norma history. He does not take any medication of any kind. Apparently recently replaced a meter at h ome to a smart meter. I do not know what the purpose of this, but apparently since then he has been having some severe headache over the last month and he changed that back to a regular meter. He came in with a blood pressure 170/100, sharp chest pain, stabbing type, nonexertional. No nausea, vomiti ng, diaphoresis. Denied PND, orthopnea, pedal edema, palpitation, or syncope. Did have some dizzy s pells. Past Medical History: Negative. Allergies: NONE. Home Medications: Negative. Family History: Positive for heart disease. Review of Systems: Negative. Social History: Negative for tobacco, drugs, or alcohol. Physical Examination: Vital Signs: His initial pressure was 170/100, now is 112/68. HEENT: Negative. Neck: Supple without any bruit, lymphadenopathy, JVD, or thyromegaly. Chest: Clear to auscultation and percussion. Cardiac: Revealed a regular rhythm and rate. No murmurs, gallops, or rubs. Abdomen: Benign. Extremities: Revealed no clubbing, cyanosis, or edema. Diagnostic Data: All within normal limit. As far as lab work is concerned, he already had a negativ e carotid Doppler, negative MRA, negative CT of the head, negative MRI. Chest x-ray and labs were no rmal. EKG was normal. He had dolichoectasia of the vertebrobasilar artery. Impression And Plan: Atypical chest pain, most likely secondary to hypertension, although the patien t may have some coronary artery disease. He is 62, got a family history of heart disease. Obviously have hypertension that may or may not be related to his pain. Echocardiogram is pending for today. I believe this is normal. The patient can go home. He should be on either an angiotensin receptor michael or a beta-michael for his hypertension. I will make arrangements for him to have an outpatie nt stress test. I think the dolichoectasia that is stated earlier in the vertebrobasilar artery coul d be certainly responsible for some of the dizziness, although I believe this is probably a chronic i ssue. I suggested a baby aspirin to Mr. Prescott. He can go home after his echocardiogram is done austyn t is normal. Case was discussed with Dr. Gallo. FANY/LÓPEZ Voice ID: [id number] Report ID: [id number]
== END 2018-03-29 12:55 | disposition home or self-care (01) ==
LOC: ER 12:43 → ERHOLD 14:50 → 2ND 16:48
PROVIDERS: ADMIT Family Medicine; ATTEND Family Medicine
DX: R07.9 Chest pain, unspecified (principal); I10 Essential (primary) hypertension; E78.5 Hyperlipidemia, unspecified; R51 Headache; G45.0 Vertebro-basilar artery syndrome; K21.9 Gastro-esophageal reflux disease without esophagitis
CPT/HCPCS: 36415; 70450; 70544; 70549; 70553; 71045; 80048; 80061; 80076; 81003; 81015; 82550; 82553; 83735; 83880; 84439; 84443; 84484; 85025; 85610; 85730; 93005; 93306; 93880; 99285; A9577; G0378; J1650; J7030